=== PATIENT | female | born 1980 | race Caucasian/White ===

== ENCOUNTER 2023-10-28 13:42 | Day surgery (SDC) | payer BC, MEDICAID ==
[2023-10-28] MEDS ORDERED: Sodium Chloride 0.9% 10 ML Syringe FLUSH PRN (13:56)
[2023-10-28] MEDS ORDERED: Lactated Ringers 1,000 ML IV SCH (14:00)
[2023-10-28 14:25] LABS: BARBITURATE SCREEN,URINE NEGATIVE (CUTOFF=200); BENZODIAZEPINES SCREEN,URINE PRESUMPTIVE POSITIVE (CUTOFF=150); BUPRENORPHINE SCREEN,URINE NEGATIVE (CUTOFF=10); METHADONE SCREEN, URINE NEGATIVE (CUTOFF=200); METHAMPHETAMINES SCREEN, URINE NEGATIVE (CUTOFF=500); OXYCODONE SCREEN,URINE NEGATIVE (CUT0FF=100); THC SCREEN,URINE 20 NG/ML NEGATIVE (CUTOFF=50)
[2023-10-28 14:31] LABS: AMPHETAMINES SCREEN, URINE NEGATIVE (CUTOFF=500)
[2023-10-28] MEDS ORDERED: Bupivacaine 0.5% 30 ML SDV ONE (14:38)
[2023-10-28] MEDS ORDERED: Succinylcholine 200 MG/10 ML MDV ONE (15:00)
[2023-10-28] MEDS ORDERED: fentaNYL 100 MCG/2 ML SDV ONE ×3 (15:02→15:37)
[2023-10-28] MEDS ORDERED: Propofol 200 MG/20 ML SDV ONE (15:02)
[2023-10-28] MEDS ORDERED: Midazolam 1 MG/ML 2 ML SDV ONE (15:02)
[2023-10-28] MEDS ORDERED: Lidocaine 2% 5 ML SDV ONE (15:07)
[2023-10-28] MEDS ORDERED: Metoclopramide 10 MG/2 ML SDV ONE (15:17)
[2023-10-28] MEDS ORDERED: Dexamethasone 4 MG/ML 5 ML MDV ONE (15:17)
[2023-10-28] MEDS ORDERED: ceFAZolin 2 GM Vial ONE (15:37)
[2023-10-28] MEDS ORDERED: Bacitracin Oint 15 GM Tube ONE (16:08)
[2023-10-28] MEDS ORDERED: HYDROmorphone 0.5 MG/0.5 ML Syringe IVPUSH PRN (16:32)
[2023-10-28] MEDS ORDERED: fentaNYL 100 MCG/2 ML SDV IVPUSH PRN (16:32)
[2023-10-28] MEDS ORDERED: Ondansetron 4 MG/2 ML SDV IVPUSH PRN (16:32)
[2023-10-28] MEDS ORDERED: Sodium Chloride 0.9% 10 ML Syringe FLUSH SCH (21:00)
== END 2023-10-28 18:00 | disposition home or self-care (01) ==
LOC: JD.SDS 13:42
PROVIDERS: ATTEND Specialist
DX: N61.1 Abscess of the breast and nipple (principal); L72.0 Epidermal cyst
CPT/HCPCS: 11406; 19120; 80306; 81025; A9270; J0330; J0665; J0690; J1100; J2250; J2704; J2765; J3010; J7120; 00300; J3490